=== PATIENT | male | born 1975 ===

== ENCOUNTER 2019-11-05 03:28 | Emergency (ER) | payer MEDICAID ==
--- NOTE | 2019-11-05 03:49 | EDM.PDOC ---
ED HPI GENERAL MEDICAL PROBLEM - General Chief Complaint: Respiratory Problem Stated Complaint: HARD TIME BREATHING Time Seen by Provider: 11/05/19 03:42 Source of Information: Reports: Patient History Limitations: Reports: No Limitations - History of Present Illness INITIAL COMMENTS - FREE TEXT/NARRATIVE: ED ambulatory with c/o productive cough green phlegm times one month, throat sore tonight and difficulty breathing. No known fever or chills. No ear pain. Smoker. No GI sx. Trying cough drops but not helping. - Related Data Allergies Allergy/AdvReac Type Severity Reaction Status Date / Time No Known Allergies Allergy Verified 11/05/19 03:37 Home Meds: Home Meds Omeprazole 20 mg PO DAILY 11/05/19 [History] ED ROS GENERAL - Review of Systems Review Of Systems: Comprehensive ROS is negative, except as noted in HPI. ED EXAM, GENERAL - Physical Exam Exam: See Below Exam Limited By: No Limitations General Appearance: Alert, Mild Distress Eye Exam: Bilateral Eye: EOMI Ears: Normal External Exam, Normal TMs Nose: Normal Inspection Throat/Mouth: Inflammation (mild posterior) Head: Atraumatic, Normocephalic Neck: Normal Inspection Respiratory/Chest: No Respiratory Distress, Decreased Breath Sounds (left mid to base). No: Rhonchi, Wheezing Cardiovascular: Normal Peripheral Pulses, Regular Rate, Rhythm GI/Abdominal: Normal Bowel Sounds Back Exam: Normal Inspection Extremities: Normal Inspection, Normal Range of Motion Neurological: Alert, Oriented, Normal Cognition Psychiatric: Normal Affect, Normal Mood Skin Exam: Warm, Dry, Intact, Normal Color Course - Vital Signs Last Recorded V/S: Last Vital Signs Temp 98.2 F 11/05/19 03:45 Pulse 82 11/05/19 03:45 Resp 18 11/05/19 03:45 BP 139/77 11/05/19 03:45 Pulse Ox 97 11/05/19 03:45 - Orders/Labs/Meds Orders: Active Orders 24 hr Category Date Time Status RT Aerosol Therapy [RC] ASDIRECTED Care 11/05/19 03:53 Active Chest 2V [CR] Urgent Exams 11/05/19 03:45 Taken CULTURE STREP A CONFIRMATION [RM] Stat Lab 11/05/19 04:00 Results STREP SCRN A RAPID W CULT CONF [RM] Stat Lab 11/05/19 04:00 Results Meds: Medications Discontinued Medications Generic Name Dose Route Start Last Admin Trade Name Ganga PRN Reason Stop Dose Admin Albuterol/Ipratropium 3 ml 11/05/19 03:53 11/05/19 04:02 Duoneb 3.0-0.5 Mg/3 Ml NEB 11/05/19 03:54 3 ml ONETIME ONE Administration - Re-Assessments/Exams Free Text/Narrative Re-Assessment/Exam: 11/05/19 06:31 Returned from xray, grabbed coat and left. Departure - Departure Time of Disposition: 04:35 Disposition: Eloped 07 Condition: Good Clinical Impression: Bronchitis - Discharge Information *PRESCRIPTION DRUG MONITORING PROGRAM REVIEWED*: No *COPY OF PRESCRIPTION DRUG MONITORING REPORT IN PATIENT AROLDO: No Referrals: PCP,Unobtain [Primary Care Provider] - Forms: ED Department Discharge Sepsis Event Note - Evaluation Sepsis Screening Result: No Definite Risk - Focused Exam Vital Signs: Vital Signs Temp Pulse Resp BP Pulse Ox 11/05/19 03:45 98.2 F 82 18 139/77 97 Date Exam was Performed: 11/05/19 Time Exam was Performed: 06:30 - My Orders Last 24 Hours: My Active Orders 11/05/19 03:45 Chest 2V [CR] Urgent 11/05/19 03:53 RT Aerosol Therapy [RC] ASDIRECTED 11/05/19 04:00 CULTURE STREP A CONFIRMATION [RM] Stat STREP SCRN A RAPID W CULT CONF [RM] Stat - Assessment/Plan Last 24 Hours: My Active Orders 11/05/19 03:45 Chest 2V [CR] Urgent 11/05/19 03:53 RT Aerosol Therapy [RC] ASDIRECTED 11/05/19 04:00 CULTURE STREP A CONFIRMATION [RM] Stat STREP SCRN A RAPID W CULT CONF [RM] Stat
[2019-11-05] MEDS ORDERED: Albuterol/Ipratropium 3.0-0.5 MG/3 ML Neb Soln NEB ONE (03:53)
== END 2019-11-05 04:25 | disposition left against medical advice (07) ==
LOC: DL.ED 03:28
DX: J40 Bronchitis, not specified as acute or chronic (principal); F17.200 Nicotine dependence, unspecified, uncomplicated
CPT/HCPCS: 71046; 87081; 87430; 94640; 99285-25; J7620-GY